=== PATIENT | male | born 1970 | race Caucasian/White ===

== ENCOUNTER 2018-12-25 10:08 | Emergency (ER) | payer BC, OTHER ==
[~2018-12-25] VITALS: Ht 172.7 cm; Wt 80.7 kg
[~2018-12-25 10:08] MED LIST: ALPR0.5T8 PO
[2018-12-25 10:30] VITALS: BP_SYST 170
--- NOTE | 2018-12-25 10:30 | NUR ---
Patient to ER bed 5 to gown for evaluation. Side rails up.
--- NOTE | 2018-12-25 10:32 | NUR ---
Patient arrived via POV, AAOx4, and ambulatory with steady gait. Patient states he had unprotected sex on Wednesday and after, found out partner was HIV positive. Patient also notes uncomfortable feeling with urination. Patietn appears anxious, and very concerned. Needs reassurance. Will continue to follow up and monitor.
--- NOTE | 2018-12-25 10:35 | NUR ---
RODDY Muñoz at bedside examining patient.
--- NOTE | 2018-12-25 10:40 | NUR ---
Patient to ER reporting of unprotected sex with partner that was HIV positive. Patient reported pain upon urination and is asking for prespcription for post exposure. Patient stated he has never been diagnosed with an STD in the past. No signs of distress noted @ this time.
[2018-12-25] MEDS ORDERED: LORazepam 1 MG TABLET PO ONE (11:15)
[2018-12-25 11:49] LABS: BILIRUBIN,URINE NEGATIVE (NEGATIVE); BLOOD, URINE NEGATIVE (NEGATIVE); CLARITY/URINE CLEAR (CLEAR); COLOR,URINE YELLOW (YELLOW); GLUCOSE,URINE NEGATIVE (NEGATIVE); KETONES,URINE NEGATIVE (NEGATIVE); LEUKOCYTE ESTERASE ,URINE NEGATIVE (NEGATIVE); NITRITE, URINE NEGATIVE (NEGATIVE); PH,URINE 5.5 (5.0-8.0); PROTEIN URINE NEGATIVE (NEGATIVE); UROBILINOGEN,URINE 0.2 (0.2-1.0)
[2018-12-25] MEDS ORDERED: cefTRIAXone 250 MG VIAL IM ONE (12:00)
[2018-12-25] MEDS ORDERED: AZITHROMYCIN 250 MG TABLET PO ONE (12:00)
[2018-12-25 12:04] VITALS: BP_SYST 141
--- NOTE | 2018-12-25 12:04 | NUR ---
Patient given written and verbal discharge instructions and verbalizes understanding. ER MD discussed with patient the results and treatment provided. Patient in stable condition. ID arm band removed. IV catheter removed intact and dressing applied, no active bleeding. Rx of Savannah Truong given. Patient educated on pain management and to follow up with PMD. Pain Scale 0/10. Opportunity for questions provided and answered. Medication side effect fact sheet provided.
[2018-12-26 13:11] LABS: HEPATITIS A AB, IgM Negative (Negative); HEPATITIS B CORE AB, IgM Negative (Negative); HEPATITIS B SURFACE AG Negative (Negative)
== END 2018-12-25 12:04 | disposition home or self-care (01) ==
LOC: SED 10:08
DX: Z20.2 Contact with and (suspected) exposure to infections with a predominantly sexual mode of transmission (principal); I10 Essential (primary) hypertension; F17.210 Nicotine dependence, cigarettes, uncomplicated; Z71.6 Tobacco abuse counseling
CPT/HCPCS: 36415; 80074; 81003; 86592; 86695; 86696; 87491; 87591; 96372; 99283; J0696; Q0144